=== PATIENT | female | born 1970 | race African-American/Black ===

== ENCOUNTER 2024-05-24 11:57 | Emergency (ER) | payer OTHER ==
[2024-05-24 12:33] VITALS: RESP 18; TEMP 98.5; BMI 35.7
[2024-05-24 15:03] LABS: HEMATOCRIT 42.7 % (32.4-45.2); HEMOGLOBIN 14.5 GM/dL (10.7-15.3); MCH 31.6 pg (25.7-33.7); MCHC 33.9 g/dl (32.0-36.0); MEAN CELL VOLUME 93.3 fl (80-96); MEAN PLT VOLUME 8.4 fl (7.5-11.1); PLATELET COUNT 359 10^3/uL (134-434); RBC 4.58 M/mm3 (3.60-5.2); RDW 14.9 % (11.6-15.6); WHITE BLOOD COUNT 7.3 K/mm3 (4.0-10.0)
[2024-05-24 15:05] LABS: PH,URINE 6.5 (5.0-8.0); URINE APPEARANCE CLOUDY; URINE BILIRUBIN NEGATIVE (NEGATIVE); URINE COLOR YELLOW; URINE GLUCOSE (UA) NEGATIVE (NEGATIVE); URINE KETONE NEGATIVE (NEGATIVE); URINE LEUK ESTERASE TRACE (NEGATIVE); URINE NITRITE NEGATIVE (NEGATIVE); URINE PROTEIN NEGATIVE (NEGATIVE); URINE UROBILINOGEN 0.2 mg/dL (0.2-1.0)
[2024-05-24 15:07] VITALS: BP 142/90; PULSE 67
[2024-05-24 15:14] LABS: EPI CELLS 134.1 /uL (0-25.1); HYALINE CASTS 1.02 /uL (0-3.1); URINE BACTERIA 699.1 /uL (0-1359); URINE RBC 3.9 /uL (0-23.9); URINE WBC 17.6 /uL (0-25.8)
[2024-05-24 15:31] LABS: POTASSIUM 4.3 mmol/L (3.5-5.1)
[2024-05-24 15:33] LABS: ALBUMIN 3.4 g/dl (3.4-5.0); CALCIUM 9.4 mg/dL (8.5-10.1)
[2024-05-24 15:34] LABS: BLOOD UREA NITROGEN 6.6 mg/dL (7-18)
[2024-05-24 15:37] LABS: CREATININE 0.6 mg/dL (0.55-1.3)
[2024-05-24 15:38] LABS: BILIRUBIN,TOTAL 0.5 mg/dL (0.2-1); TOT PROT 7.6 g/dl (6.4-8.2)
== END 2024-05-24 17:45 | disposition home or self-care (01) ==
LOC: JER 11:57
DX: R42 Dizziness and giddiness (principal); R55 Syncope and collapse; N39.0 Urinary tract infection, site not specified; R10.30 Lower abdominal pain, unspecified; R51.9 Headache, unspecified
CPT/HCPCS: 36415; 70450-TC; 71046-TC-FY; 74176-TC; 80053; 81003; 84484; 85027; 87086; 93005; 93010; 99285-25